=== PATIENT | male | born 1960 | race Caucasian/White ===

== ENCOUNTER 2017-01-05 21:36 | Emergency (ER) | payer OTHER ==
[2017-01-05 21:48] LABS: BASOPHILS % (AUTO) 1 % (0-3); EOSINOPHILS % (AUTO) 2 % (0-9); HEMATOCRIT 38 % (39-53); MEAN CORPUSCULAR HGB CONC 35.4 gm/dl (32.0-36.0); MEAN CORPUSCULAR VOLUME 85 fL (80-100); MONOCYTES % (AUTO) 10.9 % (0-12); NEUTROPHILS % (AUTO) 53.9 % (37-80)
[2017-01-05 21:53] VITALS: TEMP 97
[2017-01-05 22:06] LABS: CALCIUM 9.2 mg/dl (8.5-10.1); GLOM FILT RATE 60 mL/min (>60); POTASSIUM 3.4 mMol/L (3.5-5.1); SODIUM 142 mMol/L (136-145)
[2017-01-06 00:47] VITALS: BP 105/64; PULSE 75; RESP 18; O2SAT 95
== END 2017-01-05 23:15 | disposition home or self-care (01) | DRG 392 ==
LOC: ED 21:36
DX: K29.00 Acute gastritis without bleeding (principal)
CPT/HCPCS: 71010; 80048; 84484; 85025; 93005; 99284

== ENCOUNTER 2018-10-16 06:31 | Emergency (ER) | payer BC, OTHER ==
[2018-10-16 06:53] VITALS: TEMP 97.2
[2018-10-16] MEDS ORDERED: SODIUM CHLORIDE 0.9% 1000ML 1,000 ML IV ONE (07:03)
[2018-10-16] MEDS ORDERED: MECLIZINE HYDROCHLORIDE 12.5 MG TAB PO ONE (07:11)
[2018-10-16] MEDS ORDERED: MECLIZINE HYDROCHLORIDE 12.5 MG TAB ONE (07:17)
[2018-10-16 07:37] LABS: BASOPHILS % (AUTO) 1 % (0-3); EOSINOPHILS % (AUTO) 2 % (0-9); HEMATOCRIT 40 % (39-53); HEMOGLOBIN 13.1 gm/dl (13.5-17.7); LYMPHOCYTES % (AUTO) 19.5 % (10-50); MEAN CORPUSCULAR HEMOGLOBIN 29.1 pg (27.0-32.0); MEAN CORPUSCULAR HGB CONC 32.6 gm/dl (32.0-36.0); MEAN CORPUSCULAR VOLUME 89 fL (80-100); MONOCYTES % (AUTO) 9.1 % (0-12); NEUTROPHILS % (AUTO) 68.3 % (37-80)
[2018-10-16 07:38] LABS: ALBUMIN 3.5 gm/dl (3.4-5.0); BILIRUBIN,TOTAL 0.3 mg/dl (0.2-1.0); CALCIUM 8.1 mg/dl (8.5-10.1); CARBON DIOXIDE 28.3 mEq/L (21-32); CREATININE 1.03 mg/dl (0.80-1.30); TOTAL PROTEIN 6.7 gm/dl (6.4-8.2)
[2018-10-16] MEDS ORDERED: DIAZEPAM 5MG/ML SOL IV ONE (08:29)
[2018-10-16] MEDS ORDERED: SODIUM CHLORIDE 0.9% 1000ML 1,000 ML IV SCH (08:30)
[2018-10-16] MEDS ORDERED: LORAZEPAM 2 MG/ML SOL IV ONE (08:38)
[2018-10-16] MEDS ORDERED: LORAZEPAM 2 MG/ML SOL ONE (08:41)
[2018-10-16] MEDS ORDERED: ASPIRIN 81 MG CHEWABLE CTB PO ONE (08:50)
[2018-10-16] MEDS ORDERED: ASPIRIN 81 MG CHEWABLE CTB ONE (08:51)
[2018-10-16 09:20] LABS: APPEARANCE,URINE Clear; BILIRUBIN,URINE NEGATIVE (NEGATIVE); COLOR,URINE Yellow; GLUCOSE, URINE (UA) NEGATIVE (NEGATIVE); KETONES,URINE NEGATIVE (NEGATIVE); LEUKOCYTE ESTERASE ,URINE NEGATIVE (NEGATIVE); NITRATE,URINE NEGATIVE (NEGATIVE); OCCULT BLOOD,URINE TRACE LYSED (NEG-TRACE); UROBILINOGEN,URINE 0.2 (0.2-1.0 EU)
[2018-10-16 09:30] LABS: BACTERIA NEGATIVE (< 1+); CRYSTALS NEGATIVE (0-3 AVE/HPF); RBC,URINE 0-1 (0-3AV/HPF); WBC,URINE 0-3 (0-5AV/HPF)
[2018-10-16 09:36] VITALS: BP 139/98; PULSE 59; RESP 13; O2SAT 100
== END 2018-10-16 09:29 | disposition short-term general hospital (02) ==
LOC: ED 06:31
DX: H81.10 Benign paroxysmal vertigo, unspecified ear (principal); R40.2412 Glasgow coma scale score 13-15, at arrival to emergency department; R55 Syncope and collapse
CPT/HCPCS: 36415; 70450; 80053; 81001; 85025; 85610; 93005; 96365; 96366; 96374; 99284; 99285; J2060; A9270-GY